=== PATIENT | male | born 1990 | race Caucasian/White ===

== ENCOUNTER 2023-01-04 17:06 | Observation (INO) | payer BC, SELFPAY ==
[~2023-01-04 17:06] MED LIST: Iopamidol-370 76% 500 ML MDV (1 ML CHARGE) ONE
[2023-01-04] MEDS ORDERED: Boostrix 0.5 ML (Tdap) VIAL (>/=7 yrs of age) ONE (17:15)
[2023-01-04] MEDS ORDERED: CEFAZOLIN 2 GM VIAL ONE (17:15)
[2023-01-04 17:30] LABS: #Basophils 0.1 thou/uL (0.0-0.2); #Eosinphils 0.2 thou/uL (0.0-0.7); #Monocytes 0.4 thou/uL (0.11-0.59); #Neutrophils 4.3 thou/uL (1.40-6.50); %Basophils 0.6 % (0.0-1.0); %Eosinophils 2.4 % (0.0-10.0); %Lymphocytes 43.2 % (21.0-51.0); %Monocytes 4.9 % (0.0-10.0); %Neutrophils 48.7 % (42.0-75.0); Mean Corpuscular HGB CONC 35.9 g/dL (32.0-36.0); Mean Corpuscular Hemoglobin 32.3 pg (27.0-31.0); Mean Corpuscular Volume 89.8 fl (78.0-98.0); Mean Platelet Volume 10.2 fL (7.4-10.4); Platelet Count 285 10x3/uL (130-400); Red Blood Cell (RBC) Count 5.27 mill/uL (4.70-6.10); White Blood Cell (WBC) Count 8.8 10x3/uL (4.8-10.8)
[2023-01-04 17:45] LABS: PTT 26.6 sec (22.9-36.1); Prothrombin Time 13.5 sec (12.0-14.7)
[2023-01-04] MEDS ORDERED: fentaNYL 50 mcg/mL 1 mL Vial ONE (17:47)
[2023-01-04 17:59] LABS: ALT (SGPT) 37 U/L (8-55); AST (SGOT) 21 U/L (5-34); Albumin 4.8 g/dL (3.5-5.0); Alkaline Phosphatase 19 U/L (40-110); Anion Gap 15 mmol/L (10-20); BUN (Urea Nitrogen) 21 mg/dL (8.9-20.6); Bilirubin, Total 0.7 mg/dL (0.2-1.2); Calc. Creatinine Clearance 0 mL/min (70-130); Calcium 10.4 mg/dL (7.8-10.44); Carbon Dioxide 27 mmol/L (22-29); Chloride 101 mmol/L (98-107); Estimated GFR 89; Globulin 3.3 g/dL (2.4-3.5); Glucose 118 mg/dL (70-105); Potassium 3.6 mmol/L (3.5-5.1); Protein, Total 8.1 g/dL (6.0-8.3); Sodium 139 mmol/L (136-145)
[2023-01-04] MEDS ORDERED: Dextrose 50% Abboject 50 ML SYRINGE SLOW IVP PRN (18:07)
[2023-01-04] MEDS ORDERED: Morphine 2 MG/ML VIAL SLOW IVP PRN (18:07)
[2023-01-04] MEDS ORDERED: Dextrose 5% in Water 1,000 ML IV PRN (18:07)
[2023-01-04] MEDS ORDERED: hydrALAZINE 20 MG/ML VIAL SLOW IVP PRN (18:07)
[2023-01-04] MEDS ORDERED: Ondansetron PF 4 MG/2 ML Vial IVP PRN (18:07)
[2023-01-04] MEDS: Morphine 4 MG/ML VIAL SLOW IVP PRN ×2 (20:19→23:38)
[2023-01-04] MEDS: Famotidine/PF 20 mg/2ml Vial SLOW IVP SCH (20:20)
[2023-01-04] MEDS: Sodium Chloride 0.9% 1,000 ML IV SCH (20:21)
[2023-01-04 21:27] LABS: Bacteria/HPF None Seen HPF (None Seen); Bilirubin Negative (Negative); Blood, Urine Negative (Negative); CAUTI Indications for Culture Pelvic or flank pain; Clarity Clear (Clear); Glucose, Urine (Dipstick) Normal (Negative); Ketone, Urine Negative (Negative); Leukocyte Negative Leu/uL (Negative); Nitrite Negative (Negative); Protein, Urine (Dipstick) Negative (Neg-Trace); RBC/HPF 0-3 HPF (0-3); Squamous Epithelial 0-3 HPF (0-3); Urobilinogen Normal mg/dL (Less than 2); WBC/HPF 0-3 HPF (0-3); pH, Urine 6.5 (5.0-9.0)
[2023-01-04 21:30] LABS: Urine Culture Reflex No No
[2023-01-04 21:40] LABS: Amphetamine Not Detected (NotDetected); Barbiturates Screen Not Detected (NotDetected); Benzodiazepine Screen Not Detected (NotDetected); Cocaine Metabolite Screen Not Detected (NotDetected); Methadone Not Detected (NotDetected); Methamphetamine Not Detected (NotDetected); Opiate Screen Not Detected (NotDetected); Oxycodone Screen Not Detected (NotDetected); Phencyclidine (PCP) Not Detected (NotDetected); THC/Cannabinoid Screen Not Detected (NotDetected); Tricyclic Screen Not Detected (NotDetected)
[2023-01-04 22:31] VITALS: BMI 33.0
[2023-01-05] MEDS: Sodium Chloride 0.9% 1,000 ML IV SCH ×2 (04:33→11:31)
[2023-01-05] MEDS: Morphine 4 MG/ML VIAL SLOW IVP PRN ×2 (05:44→11:15)
[2023-01-05 05:55] LABS: #Basophils 0.1 thou/uL (0.0-0.2); #Monocytes 1.4 thou/uL (0.11-0.59); #Neutrophils 10.8 thou/uL (1.40-6.50); %Basophils 0.3 % (0.0-1.0); %Eosinophils 0.3 % (0.0-10.0); %Lymphocytes 16.6 % (21.0-51.0); %Monocytes 9.2 % (0.0-10.0); %Neutrophils 73.3 % (42.0-75.0); Mean Corpuscular HGB CONC 33.7 g/dL (32.0-36.0); Mean Corpuscular Hemoglobin 31.2 pg (27.0-31.0); Mean Corpuscular Volume 92.4 fl (78.0-98.0); Mean Platelet Volume 10.6 fL (7.4-10.4); Platelet Count 241 10x3/uL (130-400); RBC Distribution Width 12.4 % (11.5-14.5); Red Blood Cell (RBC) Count 4.46 mill/uL (4.70-6.10); White Blood Cell (WBC) Count 14.7 10x3/uL (4.8-10.8)
[2023-01-05 06:07] LABS: Hemoglobin 13.9 g/dL (14.0-18.0)
[2023-01-05 06:31] LABS: Anion Gap 12 mmol/L (10-20); BUN (Urea Nitrogen) 16 mg/dL (8.9-20.6); Calc. Creatinine Clearance 160 mL/min (70-130); Calcium 8.8 mg/dL (7.8-10.44); Carbon Dioxide 21 mmol/L (22-29); Chloride 107 mmol/L (98-107); Estimated GFR 113; Glucose 106 mg/dL (70-105); Magnesium 1.9 mg/dL (1.6-2.6); Phosphorus 3.5 mg/dL (2.3-4.7); Potassium 3.9 mmol/L (3.5-5.1); Sodium 136 mmol/L (136-145)
[2023-01-05] MEDS: Famotidine/PF 20 mg/2ml Vial SLOW IVP SCH (07:53)
[2023-01-05] MEDS ORDERED: traMADol HCl 50 MG TAB PO PRN ×2 (11:19)
[2023-01-05] MEDS ORDERED: Cyclobenzaprine 10 MG TAB PO PRN (11:19)
[2023-01-05] MEDS: Acetaminophen 500 MG TAB PO SCH ×2 (11:28→16:02)
[2023-01-05 15:59] VITALS: BP 150/70
[2023-01-05 16:22] VITALS: TEMP 99.1
== END 2023-01-05 16:30 | disposition home or self-care (01) ==
LOC: ERS 17:06 → SJJU 18:54
PROVIDERS: ADMIT Student in an Organized Health Care Education/Training Program; ATTEND Student in an Organized Health Care Education/Training Program
DX: S31.114A Laceration without foreign body of abdominal wall, left lower quadrant without penetration into peritoneal cavity, initial encounter (principal); G89.11 Acute pain due to trauma; I10 Essential (primary) hypertension; F17.290 Nicotine dependence, other tobacco product, uncomplicated; X99.1XXA Assault by knife, initial encounter
CPT/HCPCS: 36415; 71260; 74177; 80048; 80053; 80306; 80307; 81001; 83605; 83735; 84100; 85025; 85610; 85730; 86850; 86900; 86901; 90471; 90715; 96365; 96375; 96376; G0378; G0390; J2270; J3010; J7050; Q9967; S0028